=== PATIENT | male | born 1960 | race Caucasian/White ===

== ENCOUNTER 2023-07-28 12:08 | Outpatient (OUT) | payer OTHER, SELFPAY ==
[2023-07-28 14:24] LABS: Anion Gap 9.2; BUN Creatinine Ratio 10.3; Calcium 9.2 mg/dL (8.5-10.1); Carbon Dioxide 32.1 mmol/L (21.0-32.0); Chloride 105 mmol/L (98-107); Estimated GFR (African America >60 (>=60); Estimated GFR (Non-African Ame >60 (>=60); Glucose 92 mg/dL (74-106); Potassium 4.3 mmol/L (3.5-5.1); Sodium 142 mmol/L (136-145)
== END 2023-07-28 12:09 | disposition home or self-care (01) ==
PROVIDERS: PCP Orthopaedic Surgery; Visit Provider Orthopaedic Surgery
DX: Z01.818 Encounter for other preprocedural examination (principal); M75.122 Complete rotator cuff tear or rupture of left shoulder, not specified as traumatic; E11.9 Type 2 diabetes mellitus without complications
CPT/HCPCS: 36415; 80048

== ENCOUNTER 2023-07-31 11:12 | Day surgery (SDC) | payer OTHER, SELFPAY ==
[2023-07-28 13:35] VITALS: BP 110/65; PULSE 60; RESP 20; TEMP 36.6; O2SAT 100
[2023-07-28 13:37] VITALS: BMI 30.7
[2023-07-31] VITALS (15 sets, daily range): BP systolic 112–192; BP diastolic 57–89; PULSE 64–82; RESP 9–19; TEMP 36.1–36.3; O2SAT 93–100; BMI 29.6
[2023-07-31 11:23] LABS: Basophils Percent Auto 0.5 % (0.2-2.0); Eosinophils Absolute Auto 0.1 10^3/uL (0.0-0.7); Eosinophils Percent Auto 1.8 % (0.9-7.0); Hematocrit 42.9 % (42.0-54.0); Hemoglobin 14.8 g/dL (14.0-18.0); Immature Granulocytes Abs Auto 0.02 10^3/uL (0.00-0.03); Immature Granulocytes Pct Auto 0.3 % (0.0-0.5); Lymphocytes Absolute Auto 1.3 10^3/uL (1.2-3.8); Lymphocytes Percent Auto 21.5 % (20.5-60.0); Mean Corpuscular HGB Conc 34.5 g/dL (29.9-35.2); Mean Corpuscular Hemoglobin 31.4 pg (25.9-34.0); Mean Corpuscular Volume 90.9 fL (80.0-94.0); Mean Platelet Volume 10.6 fL (9.5-13.5); Monocytes Absolute Auto 0.4 10^3/uL (0.3-0.8); Neutrophils Absolute Auto 4.3 10^3/uL (1.4-6.5); Neutrophils Percent Auto 68.9 % (43.0-75.0); Platelet Count 115 10^3/uL (150-450); Red Blood Count 4.72 10^6/uL (4.70-6.10); Red Cell Distribution Width 13.1 % (11.0-15.0); White Blood Count 6.2 10^3/uL (4.0-11.0)
[2023-07-31] MEDS: LACTATED RINGER'S SOLUTION 1,000 ML 50 ML IV ×2 (11:54→15:00)
[2023-07-31] MEDS: CEFAZOLIN SODIUM/DEXTROSE,ISO 2 GM/50 ML PIGGYBACK IV (14:25)
[2023-07-31] MEDS: EPINEPHRINE HCL PF 1 MG/ML AMPULE 4 MG INJ (15:54)
[2023-07-31] MEDS: LABETALOL HCL 100 MG/20 ML MDV IVP (16:50)
--- NOTE | 2023-07-31 16:51 | PM.ORPRC ---
Procedure Note Date of procedure: 07/31/23 Pre-op diagnosis: Left shoulder partial-thickness rotator cuff tear 2. Impingement 3. AC DJD Post-op diagnosis: same as pre-op Procedure: Operation: Left shoulder arthroscopic rotator cuff repair Subacromial decompression Distal clavicle excision Operative procedure: After informed consent was obtained the patient brought to the operating room where general anesthetic was administered. Preoperatively regional block was placed. Patient was placed in the beachchair position. Exam under anesthesia the left shoulder revealed full range of motion and no instability. Left shoulder was prepped and draped in the usual sterile fashion. Diagnostic arthroscopy was performed the standard anterior, posterior and lateral arthroscopy portals. Findings included intact subscapularis tendon. Biceps tendon was intact without any tearing and mild inflammation within the intertubercular portion. Superior labrum had type I tearing which was debrided with arthroscopic shaver back to stable edge. Anterior and posterior labrum were intact. Articular cartilage of the glenohumeral joint was intact. Supraspinatus tendon was intact on the articular side. Infraspinatus was intact. No loose bodies within the axillary recess. The scope was introduced in the subacromial space and there was moderate bursal inflammation which was removed the arthroscopic shaver. There is a large subacromial spur which was removed with the arthroscopic bur. Distal clavicle was found to be severely arthritic. The 7 mm of distal clavicle was excised next using the arthroscopic bur. The rotator cuff on the bursal side had partial-thickness tearing with the supraspinatus tendon. With debridement of the tendon this easily converted to a full-thickness tear. The tendon was severely degenerative. Debridement was performed but remaining tendon was still significantly degenerative. Next 1 Arthrex suture tape and 1 Arthrex fiber placed tape were placed in inverted horizontal mattress fashion through the torn rotator cuff tendon. These were then repaired to the greater tuberosity with 1 Arthrex 5.5 bio composite swivel lock. Solid fixation was achieved. Shoulder was drained of arthroscopy fluid. Portals were closed with nylon suture. Sterile dressing was placed. UltraSling was placed. Patient was awakened and brought to the recovery in stable condition. There were no intraoperative or immediate postoperative complications.
[2023-07-31] MEDS: HYDRALAZINE HCL 20 MG/ML VIAL 10 MG IVP (17:01)
[2023-07-31] MEDS: HYDROMORPHONE HCL 0.5 MG/0.5 ML SYRINGE IV (17:07)
[2023-07-31] MEDS: OXYCODONE HCL/ACETAMINOPHEN 5MG/325MG 1 TAB PO (17:11)
== END 2023-07-31 17:47 | disposition home or self-care (01) ==
PROVIDERS: PCP Orthopaedic Surgery; Visit Provider Orthopaedic Surgery
PROC: (CPT 1630; principal; 2023-07-31 13:15)
DX: M75.112 Incomplete rotator cuff tear or rupture of left shoulder, not specified as traumatic (principal); M19.012 Primary osteoarthritis, left shoulder; M25.812 Other specified joint disorders, left shoulder; G47.30 Sleep apnea, unspecified; E03.9 Hypothyroidism, unspecified; Z79.4 Long term (current) use of insulin; Z87.891 Personal history of nicotine dependence; E78.5 Hyperlipidemia, unspecified; K21.9 Gastro-esophageal reflux disease without esophagitis; E10.9 Type 1 diabetes mellitus without complications; Z96.41 Presence of insulin pump (external) (internal)
CPT/HCPCS: 29826; 29827; 36415; 64415; 82948; 85025; J1170; J2704